=== PATIENT | female | born 1965 | race Caucasian/White ===

== ENCOUNTER 2019-05-23 15:32 | Emergency (ER) | payer MEDICARE, SELFPAY ==
[2019-05-23 15:33] VITALS: BP 130/93; PULSE 95; RESP 16; TEMP 36.4; O2SAT 95; BMI 30.5
== END 2019-05-23 18:04 | disposition left against medical advice (07) ==
LOC: ER 06-05 13:31
PROVIDERS: Emergency Provider Emergency Medicine; Family Provider Emergency Medicine
DX: Z53.21 Procedure and treatment not carried out due to patient leaving prior to being seen by health care provider (principal)
CPT/HCPCS: 99281

== ENCOUNTER 2019-05-25 13:49 | Emergency (ER) | payer MEDICARE, SELFPAY ==
[2019-05-25 14:00] VITALS: BP 135/94; PULSE 84; RESP 16; TEMP 36.8; O2SAT 93; BMI 30.5
--- NOTE | 2019-05-25 14:29 | ED_ITS ---
Entered by Kelly Estrada, acting as scribe for Jewel Meza DO HPI - Skin/Abscess/Foreign Bdy General: Chief complaint: Skin/Abscess/Foreign Body Stated complaint: vaginal problems Time Seen by Provider: 05/25/19 14:29 Source: patient and family Mode of arrival: ambulatory Limitations: no limitations History of Present Illness: HPI narrative: 54 yo female presents with abcess post vaginal tear. pt states this occurred yesterday, she applied triple antibiotic ointment. pt states the pain is worse and nothing makes this better. pt denies any other symptoms at this time. Patient general pain is severe. MD complaint: laceration (vaginal area) and abscess/boil (vaginal area) Onset (ago): day(s) (yesterday) Severity: moderate Quality: stabbing, sharp and constant Associated symptoms: Deny chills, fever(s), nausea or vomiting Review of Systems Const: Denies: fever, chills, body aches, change in appetite, fatigue or malaise ENMT: Denies: throat pain, ear pain, nasal discharge or nasal congestion Card: Denies: chest pain, edema, shortness of breath on exertion or shortness of breath when lying down Resp: Denies: shortness of breath, productive cough or non-productive cough GI: Denies: abdominal pain, nausea, vomiting, vomiting blood, coffee grounds in vomit, diarrhea, constipation, bloating, blood in stool or black tarry stool : Denies: flank pain, difficulty urinating, painful urination, urinary frequency or urinary urgency Skin/Breast: Reports: redness and skin tenderness ( abscess in vaginal area) [facility] ED PFSH: Medical History Cervical disc disorder with myelopathy of mid-cervical region Surgical History History of cervical spinal surgery 11/20/2009 Dr. Brower C5 corpectomy, C6 corpectomy, C4-C7 ACDFF Family History Father Cancer Hypertension Grandmother Diabetes Heart disease Hypertension Mother Heart disease Hypertension Grandfather Hypertension Social History (Reviewed 05/27/19 @ 10:21 by BRITTANY Ramírez Smoking and tobacco status: current every day smoker Alcohol intake: never Household members: spouse Marital status: Current occupational status: disabled History of recent travel: No Physical Exam Const: COMMON NORMALS: no apparent distress GENERAL APPEARANCE: cooperative and comfortable ORIENTATION/CONSCIOUSNESS: Yes awake, Yes oriented to person, Yes oriented to place and Yes oriented to time HENMT: COMMON NORMALS: normocephalic, head/scalp atraumatic, hearing grossly normal bilaterally, external ears normal, EAC's normal, TM's normal bilaterally, nasal mucous membranes and turbinates normal, moist oral mucous membranes and oropharynx normal HEAD & SCALP: normocephalic and atraumatic NOSE: nasal mucous membranes and turbinates normal EXTERNAL EAR: Yes external ears normal EXTERNAL AUDITORY CANAL: EAC's normal TYMPANIC MEMBRANE: TM's normal bilaterally Eye: COMMON NORMALS: PERRL, EOMs intact bilaterally, conjunctivae normal and no scleral icterus CONJUNCTIVA: Yes conjunctivae normal PUPIL: Yes PERRL Neck/C-Spine: COMMON NORMALS: full ROM, no lymphadenopathy, supple and no JVD Lymph: LYMPHATIC: no lymphadenopathy noted and no lymphedema noted Resp: COMMON NORMALS: normal respiratory effort, no retractions, no use of accessory muscles and clear to auscultation bilaterally AUSCULTATION: clear to auscultation bilaterally Cardio: COMMON NORMALS: no JVD, regular rate, regular rhythm and no murmurs RATE: regular rate RHYTHM: regular rhythm GI: COMMON NORMALS: soft to palpation and no hepatosplenomegaly AUSCULTATION: Yes normoactive bowel sounds PALPATION: Yes soft, No tender, No guarding and Yes no hepatosplenomegaly : OTHER: Patient placed in dorsolithotomy position and examined with nurse present. At the vaginal introitus there is multiple scattered shallow ulcerations with mucousy overlying area no vesicles noted has appearance consistent with genital herpes. GC chlamydia wet mount and herpes culture done. Extremity: COMMON NORMALS: normal to inspection, normal capillary refill, no clubbing, cyanosis or edema, no calf tenderness and no pedal edema Neuro: SENSORIUM/ORIENTATION: Yes oriented to person, Yes oriented to place and Yes oriented to time Course ED course: Discussed with the patient the lesions have appearance consistent with herpes infection. I would recommend that she start on antivirals. We are awaiting confirmation by culture. We have also done other swabs to screen for other infectious disease. Vital Signs: Vital signs: Vital Signs Temperature 98.2 F 05/25/19 14:00 Pulse Rate 84 05/25/19 14:00 Respiratory Rate 16 05/25/19 14:00 Blood Pressure 135/94 05/25/19 14:00 Pulse Oximetry 93 05/25/19 14:00 Discharge Plan Discharge Patient Disposition: Home, Self-Care Clinical Impression: Herpetic vesicle in vagina, Vaginitis Condition: Stable Prescriptions: New valacyclovir 1 gram tablet 1,000 mg PO BID 7 Days Qty: 14 RF: 0 lidocaine HCl 2 % jelly 1 applic TOPICAL QID PRN (Reason: pain) Qty: 50 RF: 0 No Action fluticasone propion-salmeterol [Advair Diskus] 100-50 mcg/dose blister with device 1 puff INHALATION BID RF: 0 erythromycin 250 mg tablet 250 mg PO QID RF: 0 morphine-naltrexone 100-4 mg capsule,extend.release pellets PO DAILY RF: 0 lisinopril 10 mg tablet 10 mg PO DAILY RF: 0 duloxetine [Cymbalta] 20 mg capsule,delayed release(DR/EC) 20 mg PO BID RF: 0 doxepin 10 mg capsule 10 mg PO DAILY RF: 0 aspirin [Adult Aspirin Regimen] 81 mg tablet,delayed release (DR/EC) 81 mg PO DAILY RF: 0 ondansetron HCl 8 mg tablet 8 mg PO DAILY RF: 0 duloxetine 60 mg capsule, delayed rel sprinkle 60 mg PO BID RF: 0 nitroglycerin [Nitrostat] 0.4 mg tablet, sublingual 0.4 mg SUBLINGUAL Q5M PRNRF: 0 omeprazole 20 mg capsule,delayed release(DR/EC) 20 mg PO DAILY RF: 0 estradiol 1 mg tablet 1 mg PO DAILY RF: 0 albuterol sulfate [ProAir HFA] 90 mcg/actuation HFA aerosol inhaler 2 puff INHALATION Q6H PRNRF: 0 diazepam 10 mg tablet 10 mg PO BID PRNRF: 0 simvastatin 20 mg tablet 20 mg PO DAILY RF: 0 Victoza 2-[place] 0.6 mg/0.1 mL (18 mg/3 mL) pen injector 1.8 mg SUBCUT DAILY RF: 0 hydromorphone 8 mg tablet 8 mg PO Q6H RF: 0 Discharge Orders: Discharge Order (Routine); Ordered 05/25/19 Ordered By: Jewel Meza Referrals: Tammy Diego [Primary Care Provider] - Jb Ratliff DO [Family Provider] - Discharge Diet: Usual diet Discharge Activity: Resume usual activity Patient Instructions: Lidocaine (On the skin), Valacyclovir (By mouth), Genital Herpes - Female Discharge Date/Time: 05/25/19 16:02 Coding Level of Care Code ED Liner Reroll Tender for Chg Fwd Exam Comprehensive The documentation recorded by the Sean lewis Bridget Annette, accurately reflects the service I personally performed and the decisions made by Susana bearden Curtis L, DO May 25, 2019 13:49
--- NOTE | 2019-05-25 15:15 | PC.NURSE ---
Vaginal exam chaperoned by this nurse, swabs obtained and sent to lab.
[2019-05-29 23:00] LABS: HSV 1 DNA NOT DETECTED; HSV 2 DNA DETECTED; HSV Source vaginal
== END 2019-05-25 16:02 | disposition home or self-care (01) ==
PROVIDERS: Emergency Provider Family Medicine; Family Provider Emergency Medicine; PCP Nurse Practitioner Family
DX: A60.04 Herpesviral vulvovaginitis (principal); F17.200 Nicotine dependence, unspecified, uncomplicated
CPT/HCPCS: 36415; 87210; 87491; 87530; 87591; 87661; 99282; 99283; A9270

== ENCOUNTER 2019-06-07 14:34 | Outpatient (CLI) | payer MEDICARE, SELFPAY ==
--- NOTE | 2019-06-07 15:30 | CT_ITS ---
WS: [id number] CT CERVICAL SPINE HISTORY: Neck pain, limited ROM, HX Corpectomy/ ACDFF TECHNIQUE: Contiguous 2.5 mm axial imaging performed through the entire cervical spine. Sagittal and coronal reformats also performed. All CT scans at [facility] use at least one of these do se optimization techniques: automated exposure control; mA and/or kV adjustment per patient size (inc ludes targeted exams where dose is matched to clinical indication); or iterative reconstruction. DLP: 1721.16 mGycm COMPARISON: 02/18/2017 Straightening of the normal cervical lordosis. Postoperative anterior cervical fusion from C4 to C7. C5-C6 corpectomies. Interbody fusion grafts also present. Anterior cervical plate is from t he C4 vertebral body by an osteophyte. Similar to the prior study. No lucency around the screws or ev idence for movement. Mild narrowing of the C3-4 disc space with osteophytes extending posteriorly. C2-C3: Osteophytic ridging extending to the LEFT. No significant stenosis. Shallow central disc protr usion. C3-C4: Mild diffuse osteophytic ridging with an associated RIGHT paracentral disc protrusion. Osteoph yte encroachment upon the ventral thecal sac and foramen. Mild central with moderate LEFT foraminal s tenosis. C4-C5: Diffuse osteophytic ridging. Encroachment upon the ventral thecal sac with moderate central an d bilateral foraminal stenosis. C5-C6: Diffuse osteophytic ridging. Large osteophytes contact the ventral cord to the LEFT of midline . Severe central and bilateral foraminal stenosis. C6-C7: Osteophytic ridging with encroachment upon the thecal sac, greatest on the LEFT. Severe centra l and bilateral foraminal stenosis. C7-T1: Shallow central disc protrusion. Mild central and bilateral foraminal stenosis. Soft tissues are normal. Lung apices are clear. CT/CT cervical spin wo con* [id number] IMPRESSION: 1. Postoperative anterior cervical fusion from C4 through C7 with C5-C6 corpec tomies. Interbody fusion graft at C5-6 is stable. No evidence for fracture or m ovement of the hardware. 2. Multilevel disc osteophyte complexes. 3. Severe central and bilateral foraminal stenosis at C5-6 and C6-7. 4. Mild central and moderate LEFT foraminal stenosis at C3-4. 5. Moderate central and bilateral foraminal stenosis at C4-5.
== END 2019-06-07 14:35 | disposition home or self-care (01) ==
LOC: RADWPI 14:43
PROVIDERS: Family Provider Emergency Medicine; PCP Nurse Practitioner Family; Visit Provider Licensed Practical Nurse
DX: M50.020 Cervical disc disorder with myelopathy, mid-cervical region, unspecified level (principal); M25.78 Osteophyte, vertebrae; M48.02 Spinal stenosis, cervical region; Z98.1 Arthrodesis status
CPT/HCPCS: 72125

== ENCOUNTER → 2019-11-21 10:52 | Outpatient (BNVA) | payer MEDICARE, SELFPAY | PROVIDERS: Family Provider Emergency Medicine; PCP Nurse Practitioner Family; Visit Provider Nurse Practitioner Women's Health | DX: Z86.39 Personal history of other endocrine, nutritional and metabolic disease (principal); A60.00 Herpesviral infection of urogenital system, unspecified; A60.04 Herpesviral vulvovaginitis | CPT/HCPCS: 83036 ==

== ENCOUNTER → 2019-11-29 10:30 | Outpatient (BNVA) | payer MEDICARE, SELFPAY | PROVIDERS: Family Provider Emergency Medicine; PCP Nurse Practitioner Family; Visit Provider Licensed Practical Nurse | DX: M50.020 Cervical disc disorder with myelopathy, mid-cervical region, unspecified level (principal); M48.02 Spinal stenosis, cervical region; Z98.890 Other specified postprocedural states; G56.01 Carpal tunnel syndrome, right upper limb; F17.210 Nicotine dependence, cigarettes, uncomplicated | CPT/HCPCS: 99213 ==

== ENCOUNTER → 2020-12-05 16:20 | Outpatient (BNVA) | payer OTHER, SELFPAY | PROVIDERS: Family Provider Emergency Medicine; PCP Nurse Practitioner Family; Visit Provider Obstetrics & Gynecology | DX: N90.89 Other specified noninflammatory disorders of vulva and perineum (principal) | CPT/HCPCS: 88305 ==

== ENCOUNTER → 2021-06-15 13:41 | Outpatient (BNVA) | payer BC, SELFPAY | PROVIDERS: Family Provider Emergency Medicine; PCP Nurse Practitioner Family; Visit Provider Obstetrics & Gynecology | DX: A60.00 Herpesviral infection of urogenital system, unspecified (principal); A63.0 Anogenital (venereal) warts | CPT/HCPCS: 88305 ==

== ENCOUNTER 2022-07-21 15:36 | Observation (INO) | payer MEDICARE, SELFPAY ==
[2022-07-21 15:44] VITALS: BP 100/62; PULSE 120; RESP 16; TEMP 36.6; O2SAT 90
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
[2022-07-21 18:04] VITALS: RESP 17
[2022-07-21 18:06] LABS: Basophils # 0.1 10^3/uL (0.0-0.1); Basophils % 0.5 %; Eosinophils # 0.1 10^3/uL (0.0-0.8); Eosinophils % 0.6 %; Hematocrit 40.9 % (37.0-47.0); Hemoglobin 12.5 g/dL (11.5-15.3); Lymphocytes % 7.4 %; Mean Corpuscular HGB Conc 30.6 g/dL (30.0-36.0); Mean Corpuscular Volume 104.6 fl (81-99); Mean Platelet Volume 8.7 fL (7.4-10.4); Monocytes # 0.6 10^3/uL (0.2-0.9); Monocytes % 4.9 %; Neutrophils # 11.21 10^3/uL (1.8-7.7); Neutrophils % 86.1 %; Nucleated Red Blood Cells % 0 %; Platelet Count 395 10^3/cmm (130-400); Red Blood Count 3.91 10^6/uL (4.1-5.3); Red Cell Distribution Width 21.3 % (12.1-15.1)
[2022-07-21 18:26] LABS: Alanine Aminotransferase 14 U/L (0-33); Alkaline Phosphatase 419 U/L (35-105); Anion Gap 14.4 (5-19); Aspartate Amino Transferase 22 U/L (0-32); Blood Urea Nitrogen 14 mg/dL (6-20); Calcium 8.5 mg/dL (8.5-10.5); Carbon Dioxide 32 mmol/L (22-29); Chloride 93 mmol/L (98-107); Glomerular Filtration Rate 366.1 mL/min (90-130); Glucose 141 mg/dL (65-115); Osmolality Calculated 283 mOsm/kg (285-295); Potassium 4.4 mmol/L (3.5-5.1); Sodium 135 mmol/L (136-145); Total Bilirubin 0.7 mg/dL (0.15-1.2)
[2022-07-21 18:27] LABS: Lactic Sepsis W/Reflex 1.2 mmol/L (0.5-2.2)
[2022-07-21 18:33] LABS: Procalcitonin 0.09 ng/mL (0-0.5)
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
[2022-07-21 20:24] VITALS: PULSE 101; RESP 19; O2SAT 94
[2022-07-21 21:03] VITALS: BP 126/80; PULSE 96; RESP 18; TEMP 37.1; O2SAT 95
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
[2022-07-21] MEDS: sodium chloride 0.9% 1,000 ML 75 ML IV (22:58)
[2022-07-21 23:04] VITALS: O2SAT 92
[2022-07-21 23:20] VITALS: BP 114/67; PULSE 97; RESP 20; TEMP 36.6; O2SAT 96
[2022-07-22 03:43] VITALS: BP 122/79; PULSE 98; RESP 24; TEMP 36.6; O2SAT 97
[2022-07-22 03:44] LABS: Glucose Point of Care 169 mg/dL (70-110)
--- NOTE | 2022-07-22 04:15 | PC.PHAR ---
Initial Vancomycin Dosing Goal Vanc Trough: 10-20 Height: 67 in. Weight: 72 kg CrCl: >120 mL/min Plan: Initial dose of 1500 mg Q8H Trough will be scheduled for prior to 4th dose and will reassess Laboratory Results - last 24 hr 07/21/22 07/21/22 07/21/22 17:55 17:55 17:55 WBC 13.0 H RBC 3.91 L Hgb 12.5 Hct 40.9 MCV 104.6 H MCH 32.0 MCHC 30.6 RDW 21.3 H Plt Count 395 MPV 8.7 Neut % (Auto) 86.1 Lymph % (Auto) 7.4 Emery % (Auto) 4.9 Eos % (Auto) 0.6 Baso % (Auto) 0.5 Neut # (Auto) 11.21 H Lymph # (Auto) 1.0 Emery # (Auto) 0.6 Eos # (Auto) 0.1 Baso # (Auto) 0.1 Nucleated RBC % (auto) 0 Nucleated RBCs # 0.0 Sodium 135 L Potassium 4.4 Chloride 93 L Carbon Dioxide 32 H Anion Gap 14.4 BUN 14 Creatinine 0.2 L GFR Calculation 366.1 H Glucose 141 H POC Glucose Calculated Osmolality 283 L Lactic Acid 1.2 Calcium 8.5 Total Bilirubin 0.7 AST 22 ALT 14 Alkaline Phosphatase 419 H Total Protein 8.0 Albumin 3.0 L Globulin 5.0 H Procalcitonin 0.09
[2022-07-22 05:05] LABS: Basophils # 0.1 10^3/uL (0.0-0.1); Basophils % 0.5 %; Eosinophils # 0.1 10^3/uL (0.0-0.8); Eosinophils % 0.7 %; Hematocrit 38.7 % (37.0-47.0); Hemoglobin 11.8 g/dL (11.5-15.3); Lymphocytes # 0.9 10^3/uL (0.8-4.8); Lymphocytes % 9.5 %; Mean Corpuscular HGB Conc 30.5 g/dL (30.0-36.0); Mean Corpuscular Hemoglobin 32.4 pg (28.0-34.0); Mean Corpuscular Volume 106.3 fl (81-99); Mean Platelet Volume 8.8 fL (7.4-10.4); Monocytes # 0.7 10^3/uL (0.2-0.9); Monocytes % 7.1 %; Neutrophils # 7.92 10^3/uL (1.8-7.7); Neutrophils % 81.8 %; Nucleated Red Blood Cells % 0 %; Platelet Count 370 10^3/cmm (130-400); Red Blood Count 3.64 10^6/uL (4.1-5.3); Red Cell Distribution Width 21.2 % (12.1-15.1); White Blood Count 9.7 10^3/uL (4.0-10.0)
[2022-07-22 05:26] LABS: Anion Gap 10.7 (5-19); Blood Urea Nitrogen 16 mg/dL (6-20); Calcium 8.3 mg/dL (8.5-10.5); Carbon Dioxide 30 mmol/L (22-29); Chloride 93 mmol/L (98-107); Glomerular Filtration Rate 229.3 mL/min (90-130); Glucose 146 mg/dL (65-115); Osmolality Calculated 274 mOsm/kg (285-295); Potassium 3.7 mmol/L (3.5-5.1); Sodium 130 mmol/L (136-145)
[2022-07-22] MEDS: vancomycin 1,500 MG/300 ML PIGGYBACK 200 MG IV (05:27)
[2022-07-22 05:30] LABS: Procalcitonin 0.07 ng/mL (0-0.5)
[2022-07-22 06:42] LABS: Glucose Point of Care 142 mg/dL (70-110)
[2022-07-22 08:00] VITALS: BP 101/64; PULSE 90; PULSE 93; RESP 18; TEMP 36.3; O2SAT 94
[2022-07-22] MEDS: albuterol 2.5 mg/3 mL Neb INHALATION (08:11)
[2022-07-22 08:17] VITALS: PULSE 95
[2022-07-22] MEDS: duloxetine 30 mg Capsule PO (10:04)
[2022-07-22] MEDS: fluconazole 100 mg Tablet 150 MG PO (10:04)
[2022-07-22] MEDS: clopidogrel 75 mg Tablet PO (10:04)
[2022-07-22] MEDS: pantoprazole DR 40 mg Tablet PO (10:05)
[2022-07-22] MEDS: levothyroxine 50 mcg Tablet PO (10:05)
[2022-07-22] MEDS: atorvastatin 40 mg Tablet 20 MG PO (10:05)
[2022-07-22] MEDS: BuSPIRONE 10 mg Tablet PO ×2 (10:05→15:26)
[2022-07-22] MEDS: apixaban 5 mg Tablet PO (10:05)
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
[2022-07-22 11:33] LABS: Glucose Point of Care 214 mg/dL (70-110)
--- NOTE | 2022-07-22 11:52 | PC.OT ---
OT EVALUATION ORDERS RECEIVED. EVALUATION ATTEMPTED BUT NOT COMPLETED DUE TO PATIENT BEING TRANSFERRED OUT OF FACILITY.
[2022-07-22 12:00] VITALS: BP 99/64; PULSE 95; RESP 18; TEMP 36.5; O2SAT 96
[2022-07-22 13:29] VITALS: RESP 18
[2022-07-22] MEDS: oxyCODONE-APAP 5-325 mg Tablet 1 TAB PO (13:29)
[2022-07-22] MEDS: insulin lispro 100 unit/1 mL SUBCUT (14:26)
--- NOTE | 2022-07-22 15:24 | PC.PT ---
Went to see patient for possible PT evaluation, patient relates no need for this as she is being transferred to [facility] either this evening, or will go home and her will take her to [facility] tomorrow. PT evaluation deferred for this reason, no further visits planned unless new orders are received or some situation changes.
[2022-07-22 16:00] VITALS: BP 111/74; PULSE 96; RESP 15; TEMP 36.7; O2SAT 98
== END 2022-07-22 16:21 | disposition short-term general hospital (02) ==
LOC: ER 19:42 → MEDSURG 20:07
PROVIDERS: Emergency Medicine; Admitting Provider Internal Medicine; Emergency Provider Emergency Medicine; PCP Nurse Practitioner Family; Visit Provider Internal Medicine
DX: S81.802A Unspecified open wound, left lower leg, initial encounter (principal); L98.419 Non-pressure chronic ulcer of buttock with unspecified severity; L89.152 Pressure ulcer of sacral region, stage 2; E11.9 Type 2 diabetes mellitus without complications; Z79.4 Long term (current) use of insulin; Z79.84 Long term (current) use of oral hypoglycemic drugs; Z79.899 Other long term (current) drug therapy; V89.2XXA Person injured in unspecified motor-vehicle accident, traffic, initial encounter; Z88.0 Allergy status to penicillin; Z88.2 Allergy status to sulfonamides
CPT/HCPCS: 36415; 36416; 80048; 80053; 82962; 83605; 84145; 85025; 87070; 87077; 87186; 94640; 94664; 96365; 96372; 99285; G0378; J1815; J3370; J7030; J7613

== ENCOUNTER 2023-02-02 08:58 | Emergency (ER) | payer MEDICARE, SELFPAY ==
[2023-02-02] VITALS (37 sets, daily range): BP systolic 93–154; BP diastolic 67–94; PULSE 83–133; RESP 17–36; TEMP 37.1; O2SAT 95–100; BMI 15.0
[2023-02-02] MEDS: LORazepam 2 mg/mL INJ 1 mL 1 MG IVP (09:01)
--- NOTE | 2023-02-02 09:03 | XR_ITS ---
WS: [id number] Portable AP upright chest, 02/02/2023 Clinical Data: dyspnea/cough Comparison: Portable chest, 07/12/2018. Findings: There is a dense opacity in the right upper lobe which probably represents acute pneumonia. There is a dense peripheral opacity in the left lower pleural space and left lower lobe. This could represent pneumonia, effusion, and/or atelectasis. The heart is normal. The left upper lobe and right lower lobe show no opacities. There may be a small right effusion. The patient has had surgical stab ilization of multiple right rib fractures from the third through the eighth ribs with plates and scre ws. There is a midshaft fracture of the right clavicle. There is an impacted fracture of the left hum eral head. The patient's had an anterior cervical disc fusion. Monitor leads are on the chest wall. Impression: 1. Dense opacity in right upper lobe which may represent acute pneumonia. 2. Dense peripheral opacity in left pleural space and left lower lobe. 3. Surgical stabilization of right rib fractures from the third through the eighth ribs. 4. Midshaft fracture right clavicle, impacted fracture of left humeral head and neck, and old anterio r cervical disc fusion.
--- NOTE | 2023-02-02 09:03 | ECG_ITS ---
[facility] Test Date: 2023-02-02 Pat Name: Vickie Granado Department: Room: Gender: Female Behavioral Health Specialist: : 1965 Requested By: Jewel Kolb Order Number: [id number] Rozina MD: Batool Graf M.D. Measurements Intervals Morrison Rate: 125 P: 38 KS: 147 QRS: -25 QRSD: 95 T: 83 QT: 298 QTc: 431 Interpretive Statements SINUS TACHYCARDIA INFERIOR MYOCARDIAL INFARCTION , PROBABLY OLD [40+ ms Q WAVE AND/OR ST/T ABNORMALITY IN II/aVF] ANTEROSEPTAL MYOCARDIAL INFARCTION , POSSIBLY ACUTE [40+ ms Q WAVE IN V1-V4] ACUTE DC Compared to ECG 07/09/2018 17:59:58 No significant changes Electronically Signed On 02-03-2023 0:40:25 [employer] by Batool Graf M.D. [email or web address]
[2023-02-02] MEDS: morphine 4 mg/mL SDV 1 mL 2 MG IVP (09:04)
[2023-02-02 09:15] LABS: ABG PCO2 58.3 mmHg (35-45); ABG PH Result 7.36 (7.35-7.45); Alveolar-Arterial Oxygen Gradi 54.2 mmHg (5-10); Arterial Blood Gas Hematocrit 47.7 % (37-47); Base Excess ABG 5.1 mmol/L (-2.0-2.0); Blood Gas Allen Test Pos; Blood Gas Operator Identificat CAK; Blood Gas Sample Site Brachial, left; Blood Gas Sample Type Arterial; HCO3 ABG 32.6 mmol/L (22-26); HGB O2 Sat 90.2 % (95-100); Ionized Calcium Level - ABG 1.2 mmol/L (1.1-1.4); Methemoglobin 0.2 % (0.4-1.5); Oxygen Device BIPAP; Oxygen Saturation ABG 95.2; PO2 FiO2 Ratio Arterial Blood 0; Total Hemoglobin 15.6 g/dL (12-16)
[2023-02-02 09:18] LABS: Basophils # 0.1 10^3/uL (0.0-0.1); Basophils % 0.4 %; Eosinophils # 0.2 10^3/uL (0.0-0.8); Hematocrit 52.1 % (36-47); Lymphocytes # 1.3 10^3/uL (0.8-4.8); Lymphocytes % 8.7 %; Mean Corpuscular HGB Conc 29.6 g/dL (30-55); Mean Corpuscular Hemoglobin 25.2 pg (27-33); Mean Corpuscular Volume 85.1 fl (85-98); Mean Platelet Volume 8.3 fL (7.4-10.4); Monocytes # 0.5 10^3/uL (0.2-0.9); Monocytes % 3.4 %; Neutrophils # 12.69 10^3/uL (1.8-7.7); Neutrophils % 86.2 %; Nucleated Red Blood Cells % 0 %; Platelet Count 278 10^3/cmm (157-399); Red Blood Count 6.12 10^6/uL (3.85-5.65); Red Cell Distribution Width 23.9 % (12.1-15.1); White Blood Count 14.72 10^3/uL (3.29-11.43)
[2023-02-02 09:26] LABS: Glucose Point of Care 311 mg/dL (70-110)
[2023-02-02] MEDS: sodium chloride 0.9% 1,000 ML 999 ML IV (09:30)
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
[2023-02-02 09:42] LABS: Lactic Sepsis W/Reflex 2.2 mmol/L (0.5-2.2)
[2023-02-02] MEDS: sodium chloride 0.9% 500 ML 999 ML IV (09:42)
[2023-02-02] MEDS: dexamethasone 10 mg/mL INJ IM (09:42)
[2023-02-02 09:43] LABS: Alanine Aminotransferase 29 U/L (0-33); Albumin Level 3.6 g/dL (3.5-5.2); Alkaline Phosphatase 186 U/L (35-105); Aspartate Amino Transferase 36 U/L (0-32); Blood Urea Nitrogen 17 mg/dL (6-20); Calcium 8.5 mg/dL (8.5-10.5); Carbon Dioxide 32 mmol/L (22-29); Chloride 100 mmol/L (98-107); Globulin 3.5 g/dL (1.3-4.6); Glomerular Filtration Rate 228.5 mL/min (90-130); Glucose 264 mg/dL (65-115); Osmolality Calculated 303 mOsm/kg (285-295); Sodium 141 mmol/L (136-145); Total Bilirubin 0.5 mg/dL (0.15-1.2); Total Protein 7.1 g/dL (6.6-8.7)
[2023-02-02 09:45] LABS: Anion Gap 13.2 (5-19); Potassium 4.2 mmol/L (3.5-5.1)
[2023-02-02] MEDS: aspirin 300 mg Supp PR (09:50)
[2023-02-02 09:57] LABS: Troponin(5th) Baseline 25 ng/L (0-10)
--- NOTE | 2023-02-02 10:25 | CT_ITS ---
WS: [id number] CT CHEST ANGIOGRAPHY WITH REFORMATS HISTORY: lung CA, acute resp failure TECHNIQUE: Contiguous axial images are obtained through the chest during arterial injection of intrav enous contrast. Images are reconstructed to evaluate the pulmonary arteries. MIP imaging also reviewe d. All CT scans at [facility] use at least one of these dose optimization techniques: automat ed exposure control; mA and/or kV adjustment per patient size (includes targeted exams where dose is matched to clinical indication); or iterative reconstruction. CONTRAST: Omnipaque 350; 100 mL IV. DLP: 246.01 mGy.cm COMPARISON: 07/09/2018 Good opacification of the pulmonary artery. There is breathing motion artifact present. No pulmonary emboli. There are no filling defects within the pulmonary arteries. Pulmonary artery is mildly enlarg ed. No dilatation of the thoracic aorta. Mild cardiac enlargement. No pericardial effusion. Markedly abnormal appearance to the lungs. Dense areas of consolidation involving a large portion of the RIGHT upper lobe. Masslike areas of confluent consolidation with minimal extension into the RIGHT middle lobe and the superior segment of the RIGHT lower lobe. These findings are new since the prior study. Partial atelectasis LEFT lower lobe. Bilateral pleural-based areas of nodularity and thickeni ng greatest in the LEFT thorax. Small layering LEFT pleural effusion. Small mediastinal and hilar lymph nodes. The number of lymph nodes has increased. The consolidation w ithin the RIGHT lung is contiguous with the RIGHT hilum. No adrenal mass is identified. The liver does appear cirrhotic. Stomach is significantly distended wi th fluid and air. Patient is very cachectic in appearance. Plate and screw fixation of numerous contiguous right-sided prior rib fractures. Prior cervical fusio n hardware. IMPRESSION: 1. Conglomerate areas of nodular, irregular opacification throughout the RIGHT lung but greatest invo lving the RIGHT upper lobe. Differential includes pneumonia and neoplasm. 2. No pulmonary embolism. 3. Partial atelectasis LEFT lower lobe. 4. Small LEFT pleural effusion. 5. Mild bilateral pleural thickening and nodularity. Cannot exclude neoplastic involvement. 6. No definite adenopathy within the chest. There are several but small mediastinal and hilar lymph n odes. These all may be reactive. Anticipate additional imaging after treatment to ensure resolution o f the above findings. 7. Stomach is markedly distended with fluid and air.
[2023-02-02] MEDS: ipratropium-albuterol 3 mL Neb INHALATION (10:28)
--- NOTE | 2023-02-02 10:52 | PC.PHAR ---
pts verified pts medications and brought in some medication bottles-pts states the pt no longer takes lipitor,entresto,gabapentin,levothroxine-pts states the pts prilosec was dced pt took on 02/01/23 then hasnt started the protonix as of today 02/02/23-
[2023-02-02 11:03] LABS: Reflex Lactate Order REFLEX LACTIC ORDERD
[2023-02-02] MEDS: iohexol 350 mg/mL 500 mL Btl (per mL) IV (11:17)
--- NOTE | 2023-02-02 11:18 | ECG_ITS ---
[facility] Test Date: 2023-02-02 Pat Name: Vickie Granado Department: Room: Gender: Female Putty Mixer: : 1965 Requested By: Jewel Kolb Order Number: [id number] Rozina MD: Batool Graf M.D. Measurements Intervals [place] Rate: 118 P: 38 KS: 146 QRS: -8 QRSD: 102 T: 79 QT: 320 QTc: 448 Interpretive Statements SINUS TACHYCARDIA INFERIOR MYOCARDIAL INFARCTION , OF INDETERMINATE AGE [40+ ms Q WAVE AND/OR ST/T ABNORMALITY IN II/aVF] ANTEROSEPTAL MYOCARDIAL INFARCTION , POSSIBLY ACUTE [40+ ms Q WAVE IN V1-V4] ACUTE RI Compared to ECG 02/02/2023 09:11:08 No significant changes Electronically Signed On 02-03-2023 0:51:11 BARREL REAMER by Batool Graf M.D. [id number]
[2023-02-02 11:44] LABS: Troponin 5 2HR 14.85 ng/L (0-10)
[2023-02-02 11:46] LABS: Troponin 5 2HR Delta -10.15 ABS# (0-10)
[2023-02-02] MEDS: meropenem 1,000 MG in sodium chloride 0.9% (plus) 50 ML 100 MG IV (12:07)
[2023-02-02 12:41] LABS: Lactic Acid level (Lactate) 2.5 mmol/L (0.5-2.2)
[2023-02-02] MEDS: succinylcholine 20 mg/mL SDV 10mL 90 MG IVP (14:19)
[2023-02-02] MEDS: etomidate 2 mg/mL INJ SDV 10 mL 20 MG IVP (14:19)
[2023-02-02] MEDS: fentaNYL 1,000 MCG/100 ML BAG 2.5 MCG IV (14:20)
[2023-02-02] MEDS: midazolam hcl 100 MG/100 ML BAG IV (14:21)
--- NOTE | 2023-02-02 14:45 | XR_ITS ---
WS: [id number] Portable AP semiupright chest, 02/02/2023, 1451 hours Clinical Data: ET TUBE PLACEMENT POST INTUBATION Comparison: Portable chest, 02/02/2023 0910 hours Findings: The endotracheal tube is above the indira. The nasogastric tube appears to end within the s tomach. The postoperative changes of rib repair on the right remain the same. The patchy opacities in the right upper lobe and left lower lobe have not changed. There are fractures of the right clavicle and left humerus unchanged. There is a comminuted fracture of the right humeral neck. The anterior c ervical disc fusion remains stable. Impression: 1. Satisfactory placement of endotracheal tube and nasogastric tube. 2. Multiple surgical changes, lung abnormalities and fractures remain the same.
[2023-02-02 14:54] LABS: Glucose Urine UA 4+ (Normal); Protein Urine 1+ (Negative); Specific Gravity, Urine 1.015 (1.005-1.030); Urine Appearance SL Hazy (CLEAR); Urine Color Yellow (Yellow); pH Urine 5 (5-7)
[2023-02-02 14:55] LABS: Add Urine Microscopic? YES; Bilirubin Urine Neg (Negative); Blood Urine 2+ (Negative); Ketones Urine 1+ (Negative); Leukocyte Esterase Urine Trace (Negative); Nitrate Urine Negative (Negative); Urobilinogen Urine Norm (Negative)
[2023-02-02] MEDS: propofol 10 mg/mL SDV 20 mL 50 MG IVP (15:00)
[2023-02-02 15:10] LABS: Add Urine Culture? No; Bacteria Urine 1+ /hpf; Hyaline Casts Urine 0-4 /lpf; Mucus Urine TRACE /hpf; Squamous Epithelial Cell Urine 15-25 /hpf (0-5)
--- NOTE | 2023-02-02 15:18 | ECG_ITS ---
[facility] Test Date: 2023-02-02 Pat Name: Vickie Granado Department: Room: Gender: Female Circular Saw Filer: : 1965 Requested By: Jewel Kolb Order Number: [id number] Rozina MD: Batool Graf M.D. Measurements Intervals [place] Rate: 100 P: 49 ME: 145 QRS: -14 QRSD: 98 T: 66 QT: 352 QTc: 455 Interpretive Statements SINUS TACHYCARDIA POSSIBLE LEFT ATRIAL ENLARGEMENT [-0.1mV P-WAVE IN V1/V2] INFERIOR MYOCARDIAL INFARCTION , PROBABLY OLD [40+ ms Q WAVE AND/OR ST/T ABNORMALITY IN II/aVF] ANTEROSEPTAL MYOCARDIAL INFARCTION , OF INDETERMINATE AGE [40+ ms Q WAVE IN V1-V4] Compared to ECG 02/02/2023 11:21:26 No significant changes Electronically Signed On 02-03-2023 0:52:42 SORT OPERATIONS SUPERVISOR by Batool Graf M.D. [id number]
[2023-02-02 15:35] LABS: Troponin 5 6HR 21.09 ng/L (0-10); Troponin 5 6HR Delta -3.91 ng/L (0-12)
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
[2023-02-03 17:08] LABS: Bacillus cereus group Not Detected (NOT DETECT); Bacillus subtillis group Not Detected (NOT DETECT); Corynebacterium Not Detected (NOT DETECT); Cutibacterium acnes (P.acnes) Not Detected (NOT DETECT); Enterococcus Not Detected (NOT DETECT); Enterococcus faecalis Not Detected (NOT DETECT); Enterococcus faecium Not Detected (NOT DETECT); Lactobacillus species Not Detected (NOT DETECT); Listeria Not Detected (NOT DETECT); Listeria monocytogenes Not Detected (NOT DETECT); Micrococcus Not Detected (NOT DETECT); Pan Candida Not Detected (NOT DETECT); Pan Gram-Negative Not Detected (NOT DETECT); Staphylococcus epidermidis Detected (NOT DETECT); Staphylococcus lugdunensis Not Detected (NOT DETECT); Staphylococcus species Detected (NOT DETECT); Streptococcus agalactiae Not Detected (NOT DETECT); Streptococcus anginosus group Not Detected (NOT DETECT); Streptococcus pneumoniae Not Detected (NOT DETECT); Streptococcus pyogenes Not Detected (NOT DETECT); Streptococcus species Not Detected (NOT DETECT); mecA Detected (NOT DETECT); mecC Not Detected (NOT DETECT)
== END 2023-02-02 16:40 ==
PROVIDERS: Emergency Provider Family Medicine
DX: J44.0 Chronic obstructive pulmonary disease with (acute) lower respiratory infection (principal); J18.8 Other pneumonia, unspecified organism; J96.02 Acute respiratory failure with hypercapnia; J96.01 Acute respiratory failure with hypoxia; C34.90 Malignant neoplasm of unspecified part of unspecified bronchus or lung; G93.41 Metabolic encephalopathy; Z79.02 Long term (current) use of antithrombotics/antiplatelets; Z79.01 Long term (current) use of anticoagulants; Z79.4 Long term (current) use of insulin; Z87.891 Personal history of nicotine dependence; I25.10 Atherosclerotic heart disease of native coronary artery without angina pectoris; I10 Essential (primary) hypertension; E11.42 Type 2 diabetes mellitus with diabetic polyneuropathy
CPT/HCPCS: 31500; 36415; 36416; 36600; 51702; 71045; 71275; 80051; 80053; 81001; 82330; 82805; 82962; 83605; 84484; 85025; 87040; 87077; 87150; 87186; 87205; 93005; 94002; 94640; 94660; 94799; 96372; 99285; J0330; J1100; J2060; J2185; J2250; J2270; J2704; J3010; J3490; J7030; J7040; Q9967

== ENCOUNTER 2023-03-27 14:03 | Emergency (ER) | payer MEDICARE, SELFPAY ==
[2023-03-27] VITALS (32 sets, daily range): BP systolic 77–109; BP diastolic 50–69; PULSE 0–90; RESP 0–17; O2SAT 94–100
--- NOTE | 2023-03-27 14:29 | XRR_ITS ---
PROCEDURE INFORMATION: Exam: XR Chest Exam date and time: 03/27/2023 2:41 PM Age: 58 years old Clinical indication: Device placement; Ett placement (vent status); Additional info: Intubation TECHNIQUE: Imaging protocol: Radiologic exam of the chest. Views: 1 view. COMPARISON: CR XR chest 1V [id number] 02/02/2023 2:49 PM FINDINGS: Tubes, catheters and devices: Endotracheal tube 4.8 cm above the indira. NG tube distal side hole is at the level of the EG junction. This tube should be advanced at least 7 cm. Lungs: There is complete opacity in the left hemithorax with volume loss. Prior examination showed diffuse parenchymal densities in the right upper lobe. This finding is not seen on the current examination. The left lung was well aerated. Pleural spaces: Unremarkable. No pleural effusion. No pneumothorax. Heart/Mediastinum: Unremarkable. No cardiomegaly. Bones/joints: Chronic fracture distal shaft right clavicle. Multiple right rib fractures status post ORIF with metallic plate and screws in place. there is metallic hardware in the cervical spine. XR/XR chest 1V portable [id number] IMPRESSION: 1. Complete opacity in volume loss left hemithorax. 2. Multiple right rib fractures status post ORIF. 3. Postsurgical hardware cervical spine. 4. Endotracheal tube above the indira. 5. NG tube is at the EG junction 6. Chronic fracture right clavicle
--- NOTE | 2023-03-27 14:29 | ECG_ITS ---
[facility] Test Date: 2023-03-27 Pat Name: Vickie Granado Department: Room: Gender: Female Leak Detection Engineer: : 1965 Requested By: Jb Ratliff Order Number: [id number] Rozina MD: Sanjay Ortiz M.D. Measurements Intervals [place] Rate: 90 P: 37 TN: 197 QRS: -17 QRSD: 112 T: 91 QT: 398 QTc: 488 Interpretive Statements SINUS RHYTHM LOW QRS VOLTAGE IN EXTREMITY LEADS [QRS DEFLECTION < 0.5 mV IN LIMB LEADS] ANTERIOR MYOCARDIAL INFARCTION , OF INDETERMINATE AGE [40+ ms Q WAVE AND/OR ST/T ABNORMALITY IN V3/V4] POSSIBLE INFERIOR MYOCARDIAL INFARCTION , OF INDETERMINATE AGE [30 ms Q WAVE IN II/aVF] Compared to ECG 02/02/2023 15:39:24 Low QRS voltage now present Sinus tachycardia no longer present Myocardial infarct finding still present Electronically Signed On 03-28-2023 8:37:32 PHARMACY TECHNICIAN PROGRAM DIRECTOR by Sanjay Ortiz M.D. [email or web address] [email or web address] [email or web address].[employer]/store/[id number] f
--- NOTE | 2023-03-27 14:38 | ECG_ITS ---
[facility] Test Date: 2023-03-27 Pat Name: Vickie Granado Department: Room: Gender: Female Printed Circuit Board Pcb Draftsman: : 1965 Requested By: Jb Ratliff Order Number: [id number] Rozina MD: Sanjay Ortiz M.D. Measurements Intervals [place] Rate: 89 P: 44 NH: 185 QRS: -19 QRSD: 112 T: 83 QT: 409 QTc: 499 Interpretive Statements SINUS RHYTHM POSSIBLE LEFT ATRIAL ENLARGEMENT [-0.1mV P-WAVE IN V1/V2] LOW QRS VOLTAGE IN EXTREMITY LEADS [QRS DEFLECTION < 0.5 mV IN LIMB LEADS] ANTERIOR MYOCARDIAL INFARCTION , OF INDETERMINATE AGE [40+ ms Q WAVE AND/OR ST/T ABNORMALITY IN V3/V4] POSSIBLE INFERIOR MYOCARDIAL INFARCTION , AGE INDETERMINATE[30 ms Q WAVE IN II/aVF] Compared to ECG 03/27/2023 14:10:05 No significant changes Electronically Signed On 03-28-2023 8:37:19 WAREHOUSE LEAD by Sanjay Ortiz M.D. [email or web address].[employer]/store/[id number] f
[2023-03-27 14:57] LABS: Basophils # 0.1 10^3/uL (0.0-0.1); Basophils % 0.7 %; Eosinophils % 0.1 %; Hematocrit 46.5 % (36-47); Lymphocytes # 0.5 10^3/uL (0.8-4.8); Lymphocytes % 5.6 %; Mean Corpuscular HGB Conc 26.2 g/dL (30-55); Mean Corpuscular Hemoglobin 23.1 pg (27-33); Mean Corpuscular Volume 88.2 fl (85-98); Mean Platelet Volume 11.9 fL (7.4-10.4); Monocytes # 0.7 10^3/uL (0.2-0.9); Monocytes % 8.4 %; Neutrophils # 6.72 10^3/uL (1.8-7.7); Nucleated Red Blood Cells # 0.1 /100WBC; Nucleated Red Blood Cells % 0.7 %; Platelet Count 172 10^3/cmm (157-399); Red Blood Count 5.27 10^6/uL (3.85-5.65); Red Cell Distribution Width 19.9 % (12.1-15.1); White Blood Count 8.61 10^3/uL (3.29-11.43)
[2023-03-27] MEDS: dexmedeTOMIDine 0.9 % NaCL 400 MCG/100 ML PREMIX IV (15:00)
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
[2023-03-27 15:10] LABS: Troponin(5th) Baseline 54 ng/L (0-10)
[2023-03-27 15:15] LABS: Neutrophils % 85.2 %; Slide Review Slide Review Perform
[2023-03-27 15:17] LABS: INR 5.66 (0.8-1.2)
[2023-03-27 15:19] LABS: Alanine Aminotransferase 104 U/L (0-33); Alkaline Phosphatase 486 U/L (35-105); Aspartate Amino Transferase 371 U/L (0-32); Blood Urea Nitrogen 29 mg/dL (6-20); Calcium 8.3 mg/dL (8.5-10.5); Carbon Dioxide 38 mmol/L (22-29); Chloride 77 mmol/L (98-107); Globulin 3.6 g/dL (1.3-4.6); Glomerular Filtration Rate 56.9 mL/min (90-130); Glucose 116 mg/dL (65-115); Magnesium 2.5 mg/dL (1.7-2.3); Osmolality Calculated 289 mOsm/kg (285-295); Phosphorus 5.6 mg/dL (2.5-4.5); Sodium 136 mmol/L (136-145); Total Protein 6.6 g/dL (6.6-8.7)
[2023-03-27 15:20] LABS: ABG PCO2 59.8 mmHg (35-45); ABG PH Result 7.47 (7.35-7.45); Alveolar-Arterial Oxygen Gradi 71.3 mmHg (5-10); Arterial Blood Gas Hematocrit 35.4 % (37-47); Base Excess ABG 17.2 mmol/L (-2.0-2.0); Blood Gas Allen Test Pos; Blood Gas Operator Identificat glc; Blood Gas Sample Site Radial, right; Blood Gas Sample Type Arterial; Carboxyhemoglobin 3.6 %THgb (0.4-20.1); HCO3 ABG 43.6 mmol/L (22-26); HGB O2 Sat 93.8 % (95-100); Methemoglobin 0.3 % (0.4-1.5); Oxygen Device VENT; Oxygen Saturation ABG 97.6; PO2 ABG 95.2 mmHg (80.0-100.0); PO2 FiO2 Ratio Arterial Blood 0; Total Hemoglobin 11.6 g/dL (12-16)
[2023-03-27 15:25] LABS: Anion Gap 24.2 (5-19); Potassium 3.2 mmol/L (3.5-5.1)
[2023-03-27] MEDS: midazolam 1 mg/mL INJ 2 mL 2 MG IVP (15:28)
[2023-03-27 15:37] LABS: Procalcitonin 0.25 ng/mL (0-0.5)
[2023-03-27 15:43] LABS: Lactic Sepsis W/Reflex 11.9 mmol/L (0.5-2.2)
[2023-03-27] MEDS: propofol 10 mg/mL SDV 20 mL 100 MG IVP (15:50)
[2023-03-27] MEDS: ondansetron 2 mg/ML SDV 2 mL 8 MG IVP (15:56)
[2023-03-27] MEDS: midazolam hcl 100 MG/100 ML BAG IV (16:12)
--- NOTE | 2023-03-27 16:26 | ECG_ITS ---
[facility] Test Date: 2023-03-27 Pat Name: Vickie Granado Department: Room: Gender: Female Fitter Hand: : 1965 Requested By: Jb Ratliff Order Number: [id number] Rozina MD: Sanjay Ortiz M.D. Measurements Intervals [place] Rate: 80 P: 26 IL: 212 QRS: 32 QRSD: 86 T: 91 QT: 382 QTc: 441 Interpretive Statements SINUS RHYTHM WITH FIRST DEGREE AV BLOCK LOW QRS VOLTAGE IN EXTREMITY LEADS [QRS DEFLECTION < 0.5 mV IN LIMB LEADS] ANTEROSEPTAL MYOCARDIAL INFARCTION , OF INDETERMINATE AGE [40+ ms Q WAVE IN V1-V4] INFERIOR WALL MYOCARDIAL INFARCTION OF IDETERMINATE AGE Compared to ECG 03/27/2023 14:29:58 First degree AV block now present ST (T wave) deviation now present Myocardial infarct finding still present Electronically Signed On 03-28-2023 8:39:44 GAS T[employer]ER by Sanjay Ortiz M.D. [id number]
[2023-03-27] MEDS: sodium chloride 0.9% 1,000 ML 999 ML IV (16:30)
[2023-03-27 16:56] LABS: Reflex Lactate Order REFLEX LACTIC ORDERD
[2023-03-27 17:05] LABS: Urine Appearance SL Hazy (CLEAR); Urine Color Dark Yellow (Yellow); pH Urine 5 (5-7)
[2023-03-27 17:06] LABS: Add Urine Microscopic? YES; Amphetamines Screen Urine Negative (Negative); Bacteria Urine 1+ /hpf; Barbiturates Screen Urine Negative (Negative); Benzodiazepines Screen Urine Positive (Negative); Bilirubin Urine Neg (Negative); Blood Urine Neg (Negative); Cocaine Screen Urine Negative (Negative); Glucose Urine UA 4+ (Normal); Ketones Urine 1+ (Negative); Leukocyte Esterase Urine Negative (Negative); Nitrate Urine Negative (Negative); Opiate Screen Urine Positive (Negative); PCP Screen Urine Negative (Negative); Protein Urine 1+ (Negative); RBC Urine 0-4 /hpf (0-2); Squamous Epithelial Cell Urine 0-4 /hpf (0-5); THC Screen Urine Negative (Negative); Urobilinogen Urine 8 mg/dL (Negative); WBC Urine 0-4 /hpf (0-5)
[2023-03-27 17:07] LABS: Hyaline Casts Urine 0-4 /lpf; Mucus Urine 1+ /hpf
[2023-03-27 17:50] LABS: Glucose Point of Care 137 mg/dL (70-110)
--- NOTE | 2023-03-27 19:00 | PC.NURSE ---
Scanned vitals in chart
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
== END 2023-03-27 19:00 | disposition short-term general hospital (02) ==
PROVIDERS: Emergency Provider Emergency Medicine
DX: I46.9 Cardiac arrest, cause unspecified (principal); C34.90 Malignant neoplasm of unspecified part of unspecified bronchus or lung; R79.89 Other specified abnormal findings of blood chemistry; R74.02 Elevation of levels of lactic acid dehydrogenase [LDH]; R79.1 Abnormal coagulation profile; S22.41XA Multiple fractures of ribs, right side, initial encounter for closed fracture; X58.XXXA Exposure to other specified factors, initial encounter; Z87.891 Personal history of nicotine dependence; I10 Essential (primary) hypertension; J44.9 Chronic obstructive pulmonary disease, unspecified; I25.10 Atherosclerotic heart disease of native coronary artery without angina pectoris; E11.42 Type 2 diabetes mellitus with diabetic polyneuropathy
CPT/HCPCS: 36416; 36600; 71045; 80051; 80053; 80306; 81001; 82330; 82805; 82962; 83605; 83735; 84100; 84145; 84484; 85025; 85610; 87070; 87205; 93005; 94002; 94799; 96365; 96375; 99291; J2250; J2405; J2704; J7030